=== PATIENT | male | born 1985 | race Caucasian/White ===

== ENCOUNTER 2023-09-12 15:02 | Emergency (ER) | payer OTHER ==
[~2023-09-12] VITALS: Ht 188 cm; Wt 99.1 kg
[2023-09-12 16:19] VITALS: BP 111/71; PULSE 55; RESP 17; TEMP 97.7; O2SAT 97
[2023-09-12] MEDS: KETOROLAC TROMETH 60MG/2ML VIAL IM ONE (16:46)
[2023-09-12 17:30] VITALS: PULSE 54
== END 2023-09-12 17:45 | disposition home or self-care (01) ==
LOC: ER 15:02
DX: M54.6 Pain in thoracic spine (principal)
CPT/HCPCS: 72070; 93005; 96372; 99283; J1885